=== PATIENT | female | born 1955 | race African-American/Black ===

== ENCOUNTER 2018-10-29 07:58 | Inpatient (IN) | payer BC ==
[2018-10-29] VITALS (9 sets, daily range): BP systolic 103–156; BP diastolic 64–80
[~2018-10-29] VITALS: Ht 157.5 cm; Wt 94.8 kg
[~2018-10-29 07:58] MED LIST: AMLO5TAB10 PO; HYDR-2145 PO
[2018-10-29] MEDS ORDERED: IV NORMAL SALINE 1000ML BAG 1,000 ML IV SCH ×2 (08:19→10:56)
--- NOTE | 2018-10-29 08:45 | PHYS DOC ---
Past Medical History Past Medical History: Hypertension Past Surgical History: No Surgical History Alcohol Use: None Drug Use: None Adult General Chief Complaint Chief Complaint: ABDOMINAL PAIN HPI HPI Patient is a 63 year old female who presents with complaining of back and abdominal pain. Patient states she woke up at 12:30 this morning with sudden onset of right upper back as a constant and sharp pain and later on had pain in the epigastric hematuria. Patient rated her pain 8/10 and states she had 3 episodes of vomiting and few episodes of small amount of loose stool since her pain was started. Patient denies lower abdominal pain, urinary symptoms, fever and chills, chest pain, shortness of breath. Patient states she had some episodes of the same pain for the last several months and had 1 episode of pain with vomiting last year without seeking medical attention. Review of Systems Review of Systems Constitutional: Denies fever or chills [] Eyes: Denies change in visual acuity, redness, or eye pain [] HENT: Denies nasal congestion or sore throat [] Respiratory: Denies cough or shortness of breath [] Cardiovascular: No additional information not addressed in HPI [] GI: Reports abdominal pain, nausea, vomiting, diarrhea [] : Denies dysuria or hematuria [] Musculoskeletal: Reports back pain, denies joint pain [] Integument: Denies rash or skin lesions [] Neurologic: Denies headache, focal weakness or sensory changes [] Endocrine: Denies polyuria or polydipsia [] All other systems were reviewed and found to be within normal limits, except as documented in this note. Current Medications Current Medications Current Medications Medications (Trade) Dose Ordered Sig/[facility] Start Time Stop Time Status Last Admin Dose Admin Ketorolac Tromethamine (Toradol 30mg Vial) 30 mg 1X ONCE 10/29/18 09:00 10/29/18 09:01 DC 10/29/18 08:55 30 MG Ondansetron HCl (Zofran) 4 mg 1X ONCE 10/29/18 09:00 10/29/18 09:01 DC 10/29/18 08:55 4 MG Sodium Chloride 1,000 ml @ 150 mls/hr Q6H40M 10/29/18 10:56 10/29/18 16:37 DC 10/29/18 12:21 150 MLS/HR Allergies Allergies Physical Exam Physical Exam Constitutional: Well developed, well nourished, mild distress, non-toxic appearance. [] HENT: Normocephalic, atraumatic, oropharynx dry. Eyes: PERRLA, EOMI, conjunctiva normal, no discharge. [] Neck: Normal range of motion, no tenderness, supple, no stridor. [] Cardiovascular:Heart rate regular rhythm, no murmur [] Lungs & Thorax: Bilateral breath sounds clear to auscultation [] Abdomen: Bowel sounds normal, soft, no tenderness, epigastric guarding, no masses, no pulsatile masses. [] Skin: Warm, dry, no erythema, no rash. [] Back: No midline tenderness, no CVA tenderness. [] Extremities: No tenderness, no cyanosis, no clubbing, ROM intact, no edema. [] Neurologic: Alert and oriented X 3, normal motor function, normal sensory function, no focal deficits noted. [] Psychologic: Affect normal, judgement normal, mood normal. [] Current Patient Data Vital Signs Vital Signs Date Time Temp Pulse Resp B/P (MAP) Pulse Ox O2 Delivery O2 Flow Rate FiO2 10/29/18 11:00 147/74 (98) 99 Room Air 10/29/18 10:18 100 18 10/29/18 08:00 98.2 98.2 Lab Values Laboratory Tests Test 10/29/18 08:45 10/29/18 09:25 10/29/18 09:45 White Blood Count 13.5 x10^3/uL (4.0-11.0) H Red Blood Count 4.91 x10^6/uL (3.50-5.40) Hemoglobin 13.7 g/dL (12.0-15.5) Hematocrit 42.0 % (36.0-47.0) Mean Corpuscular Volume 86 fL (79-100) Mean Corpuscular Hemoglobin 28 pg (25-35) Mean Corpuscular Hemoglobin Concent 33 g/dL (31-37) Red Cell Distribution Width 13.3 % (11.5-14.5) Platelet Count 372 x10^3/uL (140-400) Neutrophils (%) (Auto) 96 % (31-73) H Lymphocytes (%) (Auto) 2 % (24-48) L Monocytes (%) (Auto) 2 % (0-9) Eosinophils (%) (Auto) 0 % (0-3) Basophils (%) (Auto) 0 % (0-3) Neutrophils # (Auto) 12.9 x10^3uL (1.8-7.7) H Lymphocytes # (Auto) 0.3 x10^3/uL (1.0-4.8) L Monocytes # (Auto) 0.2 x10^3/uL (0.0-1.1) Eosinophils # (Auto) 0.0 x10^3/uL (0.0-0.7) Basophils # (Auto) 0.0 x10^3/uL (0.0-0.2) Segmented Neutrophils % 89 % (35-66) H Band Neutrophils % 4 % (0-9) Lymphocytes % 5 % (24-48) L Monocytes % 2 % (0-10) Platelet Estimate Adequate (ADEQUATE) Sodium Level 139 mmol/L (136-145) Potassium Level 3.4 mmol/L (3.5-5.1) L Chloride Level 100 mmol/L (98-107) Carbon Dioxide Level 24 mmol/L (21-32) Anion Gap 15 (6-14) H Blood Urea Nitrogen 12 mg/dL (7-20) Creatinine 1.0 mg/dL (0.6-1.0) Estimated GFR (Cockcroft-Gault) 67.5 BUN/Creatinine Ratio 12 (6-20) Glucose Level 155 mg/dL (70-99) H Calcium Level 9.6 mg/dL (8.5-10.1) Total Bilirubin 0.7 mg/dL (0.2-1.0) Aspartate Amino Transferase (AST) 15 U/L (15-37) Alanine Aminotransferase (ALT) 22 U/L (14-59) Alkaline Phosphatase 89 U/L (46-116) Troponin I Quantitative < 0.017 ng/mL (0.000-0.055) Total Protein 7.7 g/dL (6.4-8.2) Albumin 4.0 g/dL (3.4-5.0) Albumin/Globulin Ratio 1.1 (1.0-1.7) Lipase 39 U/L (73-393) L Urine Collection Type Unknown Urine Color Yellow Urine Clarity Clear Urine pH 7.5 Urine Specific [place] 1.015 Urine Protein Negative mg/dL (NEG-TRACE) Urine Glucose (UA) 100 mg/dL (NEG) Urine Ketones (Stick) Trace mg/dL (NEG) Urine Blood Negative (NEG) Urine Nitrite Negative (NEG) Urine Bilirubin Negative (NEG) Urine Urobilinogen Dipstick 0.2 mg/dL (0.2 mg/dL) Urine Leukocyte Esterase Negative (NEG) Urine RBC Occ /HPF (0-2) Urine WBC 1-4 /HPF (0-4) Urine Squamous Epithelial Cells Few /LPF Urine Bacteria Many /HPF (0-FEW) Laboratory Tests 10/29/18 08:45 Laboratory Tests 10/29/18 09:25 EKG EKG EKG interpreted by me. EKG at 0 817 showed sinus tachycardia at rate of 108, normal MO and QT interval, no acute ST and T-wave abnormalities. Radiology/Procedures Radiology/Procedures [facility] [address] [place] [address] IMAGING REPORT Signed PATIENT: WILLIAMS SWAN ACCOUNT: [id number] : 1955 LOCATION: ER AGE: 63 SEX: F EXAM STATUS: REG ER ORD. PHYSICIAN: DRISS VERGARA MD REASON: epigastric pain PROCEDURE: ABDOMEN LTD Limited abdominal ultrasound History: EPIGASTRIC PAIN Findings: Pancreas appears unremarkable. Inferior vena cava is documented. Liver measures 17.3 cm at the right lobe. No obvious focal lesion is seen. The gallbladder demonstrates multiple echogenic shadowing structures compatible with layering gallstones. Gallbladder wall measures 2.6 mm in thickness. Dilatation of the common bile duct, up to 10 mm. There is a nonshadowing structure within the common bile duct, could represent a polyp or fold. Right kidney measures 10.8 cm longitudinal without hydronephrosis. IMPRESSION: Findings are compatible with cholecystitis. Common bile duct is dilated at 10 mm, could be due to more distal obstruction. A definite common duct stone is not visualized. Small nonshadowing structure in the common bile duct, possibly a polyp or fold. Electronically signed by: Francisco Montiel MD (10/29/2018 9:18 AM) [facility] DICTATED and SIGNED BY: FRANCISCO MONTIEL MD DATE: 10/29/18917 Course & Med Decision Making Course & Med Decision Making Pertinent Labs and Imaging studies reviewed. (See chart for details) Dilution of patient in ER showed 63-year-old male patient with complaining of nausea and vomiting and epigastric pain. Patient had cholecystitis with dilated common bile duct in gallbladder ultrasound. On-call surgeon Dr. Bronson was consulted at 1022 and recommended admission or discharge. Patient was informed about this result and plan of care and decided to stay at Hospital. Dr. Wiggins accepted admission at 1057. Dragon Disclaimer Dragon Disclaimer This electronic medical record was generated, in whole or in part, using a voice recognition dictation system. Departure Departure Impression: Primary Impression: Acute cholecystitis Disposition: ADMITTED INPATIENT (@1057) Admitting Physician: Francisco Wiggins (accepted admission at 1057) Condition: IMPROVED Referrals: FRANCISCO WIGGINS MD (PCP) DRISS VERGARA MD Oct 29, 2018 08:45
[2018-10-29 08:58] LABS: BASO % 0 % (0-3); EOS % 0 % (0-3); HEMOGLOBIN 13.7 g/dL (12.0-15.5); LYMPH # 0.3 x10^3/uL (1.0-4.8); LYMPH % 2 % (24-48); MEAN CORPUSCULAR HEMOGLOBIN 28 pg (25-35); MEAN CORPUSCULAR HGB CONC 33 g/dL (31-37); MEAN CORPUSCULAR VOLUME 86 fL (79-100); MONO # 0.2 x10^3/uL (0.0-1.1); MONO % 2 % (0-9); NEUT # 12.9 x10^3uL (1.8-7.7); NEUT % 96 % (31-73); PLATELET COUNT 372 x10^3/uL (140-400); RED BLOOD COUNT 4.91 x10^6/uL (3.50-5.40); RED CELL DISTRIBUTION WIDTH 13.3 % (11.5-14.5); WHITE BLOOD COUNT 13.5 x10^3/uL (4.0-11.0)
[2018-10-29] MEDS ORDERED: KETOROLAC 30 MG/ML VIAL. IV ONE (09:00)
[2018-10-29] MEDS ORDERED: ONDANSETRON PF 4 MG/2 ML VIAL. IV ONE (09:00)
--- NOTE | 2018-10-29 09:21 | RAD ---
Limited abdominal ultrasound History: EPIGASTRIC PAIN Findings: Pancreas appears unremarkable. Inferior vena cava is documented. Liver measures 17.3 cm at the right lobe. No obvious focal lesion is seen. The gallbladder demonstrates multiple echogenic shadowing structures compatible with layering gallstones. Gallbladder wall measures 2.6 mm in thickness. Dilatation of the common bile duct, up to 10 mm. There is a nonshadowing structure within the common bile duct, could represent a polyp or fold. Right kidney measures 10.8 cm longitudinal without hydronephrosis. IMPRESSION: Findings are compatible with cholecystitis. Common bile duct is dilated at 10 mm, could be due to more distal obstruction. A definite common duct stone is not visualized. Small nonshadowing structure in the common bile duct, possibly a polyp or fold. Electronically signed by: Francisco Montiel MD (10/29/2018 9:18 AM) [facility]
[2018-10-29 09:46] LABS: CALCIUM 9.6 mg/dL (8.5-10.1); GFR 67.5; POTASSIUM 3.4 mmol/L (3.5-5.1)
[2018-10-29 09:52] LABS: ALBUMIN/GLOBULIN RATIO 1.1 (1.0-1.7); TOTAL BILIRUBIN 0.7 mg/dL (0.2-1.0); TOTAL PROTEIN 7.7 g/dL (6.4-8.2)
[2018-10-29 09:56] LABS: BILIRUBIN,URINE NEGATIVE (NEG); CLARITY,URINE CLEAR; COLOR,URINE YELLOW; NITRITE,URINE NEGATIVE (NEG); PH,URINE 7.5; PROTEIN,URINE NEGATIVE (NEG-TRACE); UROBILINOGEN,URINE 0.2 mg/dL (0.2 mg/dL)
[2018-10-29 10:09] LABS: SQUAMOUS EPITHELIAL CELL,UR FEW /LPF
[2018-10-29 10:10] LABS: BACTERIA,URINE MANY /HPF (0-FEW); RBC,URINE OCC /HPF (0-2)
[2018-10-29 10:20] LABS: % BANDS 4 % (0-9); % LYMPHS 5 % (24-48); % MONOS 2 % (0-10); % SEGS 89 % (35-66); PLT ESTIMATE ADEQUATE (ADEQUATE)
[2018-10-29] MEDS ORDERED: IOHEXOL 300 MG/ML 100ML VIAL. ONE (11:17)
[2018-10-29] MEDS ORDERED: BUPIVAC MPF-EPI 0.5%-1:200000 30 ML VIAL. ONE (11:17)
[2018-10-29] MEDS ORDERED: SURGICEL HEMOSTAT 4X8 EACH. ONE (11:17)
[2018-10-29] MEDS ORDERED: PIPERACILLIN/TAZOBACTAM 3.375 GM in IV NORMAL SALINE 50ML 50 ML IV ONE (11:30)
[2018-10-29] MEDS ORDERED: IV RINGERS,LACTATED 1000ML 1,000 ML IV SCH (11:46)
--- NOTE | 2018-10-29 11:50 | PDOC2 ---
TRENT CUEVAS DISASTER RECOVERY ANALYST 10/29/18 1150: CONSULT Date of Consult Date of Consult DATE: 10/29/18 TIME: 11:45 Reason for Consult Reason for Consult: cholecystitis Referring Physician Referring Physician: ER Identification/Chief Complaint Chief Complaint abdominal pain Source Source: Chart review, Patient History of Present Illness Reason for Visit: Acute onset of abdominal pain shooting to her back starting last evening. Had BBQ for dinner last night. Has had intermittent back pain before but thought related to her job. Pain has never been this bad. Associated nausea and emesis. Past Medical History Cardiovascular: HTN Past Surgical History Past Surgical History: Hysterectomy Family History Family History: Other (noncontributory to current illness ) Social History No ALCOHOL: none Drugs: None Lives: Alone Current Medications Current Medications Current Medications Sodium Chloride 1,000 ml @ 1,000 mls/hr Q1H IV Last administered on 10/29/18at 08:56; Start 10/29/18 at 08:19; Stop 10/29/18 at 09:18; Status DC Ondansetron HCl (Zofran) 4 mg 1X ONCE IV Last administered on 10/29/18at 08:55; Start 10/29/18 at 09:00; Stop 10/29/18 at 09:01; Status DC Ketorolac Tromethamine (Toradol 30mg Vial) 30 mg 1X ONCE IV Last administered on 10/29/18at 08:55; Start 10/29/18 at 09:00; Stop 10/29/18 at 09:01; Status DC Piperacillin Sod/ Tazobactam Sod 3.375 gm/Sodium Chloride 50 ml @ 100 mls/hr 1X ONCE IV ; Start 10/29/18 at 11:30; Stop 10/29/18 at 11:59 Sodium Chloride 1,000 ml @ 150 mls/hr Q6H40M IV ; Start 10/29/18 at 10:56; Stop 10/30/18 at 10:55 Active Scripts Active Hydrochlorothiazide Tablet (Hydrochlorothiazide) 25 Mg Tablet 25 Mg PO DAILY Amlodipine Besylate 5 Mg Tablet 5 Mg PO DAILY Allergies Allergies: Coded Allergies: No Known Drug Allergies (Unverified , 10/29/18) ROS General: No: Chills, Other (fevers) PSYCHOLOGICAL ROS: No: Anxiety, Depression Eyes: No Blurry vision, No Double vision HEENT: No: Heacaches, Sore Throat Hematological and Lymphatic: No: Bleeding Problems, Blood Clots Respiratory: No: Cough, Shortness of breath Cardiovascular: No Chest Pain, No Palpitations Gastrointestinal: Yes Other (see hpi) Genitourinary: No Dysuria, No Hematuria Musculoskeletal: No Joint Pain, No Muscle Pain Neurological: No Confusion, No Numbness/Tingling Skin: No Pruritus, No Rash Physical Exam General: Alert, Oriented X3, Cooperative, No acute distress HEENT: PERRLA, Mucous membr. moist/pink Lungs: Clear to auscultation, Normal air movement Heart: Regular rate, Normal S1, Normal S2, No murmurs Abdomen: Soft, Other (ND, TTP epigastric) Extremities: No clubbing, No cyanosis Skin: No rashes, No breakdown Neuro: Normal gait, Normal speech Psych/Mental Status: Mental status NL, Mood NL MUSCULOSKELETAL: No deformity, No swelling Vitals VITALS Vital Signs Date Time Temp Pulse Resp B/P (MAP) Pulse Ox O2 Delivery O2 Flow Rate FiO2 10/29/18 08:00 98.2 106 18 165/81 (109) 98 Room Air 98.2 Labs Labs Laboratory Tests Test 10/29/18 08:45 10/29/18 09:25 10/29/18 09:45 White Blood Count 13.5 x10^3/uL (4.0-11.0) Red Blood Count 4.91 x10^6/uL (3.50-5.40) Hemoglobin 13.7 g/dL (12.0-15.5) Hematocrit 42.0 % (36.0-47.0) Mean Corpuscular Volume 86 fL (79-100) Mean Corpuscular Hemoglobin 28 pg (25-35) Mean Corpuscular Hemoglobin Concent 33 g/dL (31-37) Red Cell Distribution Width 13.3 % (11.5-14.5) Platelet Count 372 x10^3/uL (140-400) Neutrophils (%) (Auto) 96 % (31-73) Lymphocytes (%) (Auto) 2 % (24-48) Monocytes (%) (Auto) 2 % (0-9) Eosinophils (%) (Auto) 0 % (0-3) Basophils (%) (Auto) 0 % (0-3) Neutrophils # (Auto) 12.9 x10^3uL (1.8-7.7) Lymphocytes # (Auto) 0.3 x10^3/uL (1.0-4.8) Monocytes # (Auto) 0.2 x10^3/uL (0.0-1.1) Eosinophils # (Auto) 0.0 x10^3/uL (0.0-0.7) Basophils # (Auto) 0.0 x10^3/uL (0.0-0.2) Segmented Neutrophils % 89 % (35-66) Band Neutrophils % 4 % (0-9) Lymphocytes % 5 % (24-48) Monocytes % 2 % (0-10) Platelet Estimate Adequate (ADEQUATE) Sodium Level 139 mmol/L (136-145) Potassium Level 3.4 mmol/L (3.5-5.1) Chloride Level 100 mmol/L (98-107) Carbon Dioxide Level 24 mmol/L (21-32) Anion Gap 15 (6-14) Blood Urea Nitrogen 12 mg/dL (7-20) Creatinine 1.0 mg/dL (0.6-1.0) Estimated GFR (Cockcroft-Gault) 67.5 BUN/Creatinine Ratio 12 (6-20) Glucose Level 155 mg/dL (70-99) Calcium Level 9.6 mg/dL (8.5-10.1) Total Bilirubin 0.7 mg/dL (0.2-1.0) Aspartate Amino Transf (AST/SGOT) 15 U/L (15-37) Alanine Aminotransferase (ALT/SGPT) 22 U/L (14-59) Alkaline Phosphatase 89 U/L (46-116) Troponin I Quantitative < 0.017 ng/mL (0.000-0.055) Total Protein 7.7 g/dL (6.4-8.2) Albumin 4.0 g/dL (3.4-5.0) Albumin/Globulin Ratio 1.1 (1.0-1.7) Lipase 39 U/L (73-393) Urine Collection Type Unknown Urine Color Yellow Urine Clarity Clear Urine pH 7.5 Urine Specific [place] 1.015 Urine Protein Negative mg/dL (NEG-TRACE) Urine Glucose (UA) 100 mg/dL (NEG) Urine Ketones (Stick) Trace mg/dL (NEG) Urine Blood Negative (NEG) Urine Nitrite Negative (NEG) Urine Bilirubin Negative (NEG) Urine Urobilinogen Dipstick 0.2 mg/dL (0.2 mg/dL) Urine Leukocyte Esterase Negative (NEG) Urine RBC Occ /HPF (0-2) Urine WBC 1-4 /HPF (0-4) Urine Squamous Epithelial Cells Few /LPF Urine Bacteria Many /HPF (0-FEW) Laboratory Tests Test 10/29/18 08:45 10/29/18 09:25 10/29/18 09:45 White Blood Count 13.5 x10^3/uL (4.0-11.0) Red Blood Count 4.91 x10^6/uL (3.50-5.40) Hemoglobin 13.7 g/dL (12.0-15.5) Hematocrit 42.0 % (36.0-47.0) Mean Corpuscular Volume 86 fL (79-100) Mean Corpuscular Hemoglobin 28 pg (25-35) Mean Corpuscular Hemoglobin Concent 33 g/dL (31-37) Red Cell Distribution Width 13.3 % (11.5-14.5) Platelet Count 372 x10^3/uL (140-400) Neutrophils (%) (Auto) 96 % (31-73) Lymphocytes (%) (Auto) 2 % (24-48) Monocytes (%) (Auto) 2 % (0-9) Eosinophils (%) (Auto) 0 % (0-3) Basophils (%) (Auto) 0 % (0-3) Neutrophils # (Auto) 12.9 x10^3uL (1.8-7.7) Lymphocytes # (Auto) 0.3 x10^3/uL (1.0-4.8) Monocytes # (Auto) 0.2 x10^3/uL (0.0-1.1) Eosinophils # (Auto) 0.0 x10^3/uL (0.0-0.7) Basophils # (Auto) 0.0 x10^3/uL (0.0-0.2) Segmented Neutrophils % 89 % (35-66) Band Neutrophils % 4 % (0-9) Lymphocytes % 5 % (24-48) Monocytes % 2 % (0-10) Platelet Estimate Adequate (ADEQUATE) Sodium Level 139 mmol/L (136-145) Potassium Level 3.4 mmol/L (3.5-5.1) Chloride Level 100 mmol/L (98-107) Carbon Dioxide Level 24 mmol/L (21-32) Anion Gap 15 (6-14) Blood Urea Nitrogen 12 mg/dL (7-20) Creatinine 1.0 mg/dL (0.6-1.0) Estimated GFR (Cockcroft-Gault) 67.5 BUN/Creatinine Ratio 12 (6-20) Glucose Level 155 mg/dL (70-99) Calcium Level 9.6 mg/dL (8.5-10.1) Total Bilirubin 0.7 mg/dL (0.2-1.0) Aspartate Amino Transf (AST/SGOT) 15 U/L (15-37) Alanine Aminotransferase (ALT/SGPT) 22 U/L (14-59) Alkaline Phosphatase 89 U/L (46-116) Troponin I Quantitative < 0.017 ng/mL (0.000-0.055) Total Protein 7.7 g/dL (6.4-8.2) Albumin 4.0 g/dL (3.4-5.0) Albumin/Globulin Ratio 1.1 (1.0-1.7) Lipase 39 U/L (73-393) Urine Collection Type Unknown Urine Color Yellow Urine Clarity Clear Urine pH 7.5 Urine Specific [place] 1.015 Urine Protein Negative mg/dL (NEG-TRACE) Urine Glucose (UA) 100 mg/dL (NEG) Urine Ketones (Stick) Trace mg/dL (NEG) Urine Blood Negative (NEG) Urine Nitrite Negative (NEG) Urine Bilirubin Negative (NEG) Urine Urobilinogen Dipstick 0.2 mg/dL (0.2 mg/dL) Urine Leukocyte Esterase Negative (NEG) Urine RBC Occ /HPF (0-2) Urine WBC 1-4 /HPF (0-4) Urine Squamous Epithelial Cells Few /LPF Urine Bacteria Many /HPF (0-FEW) Assessment/Plan Assessment/Plan cholecystitis HTN obesity plan lap sanam today BALTAZAR SELBY MD 10/29/18 1221: CONSULT Assessment/Plan Assessment/Plan Patient seen and examined by me. Complains of RUQ abd pain. U/S showing gallstones and dilated CBD. Abd soft, ND TTP RUQ. Agree with Jama's assessment and plan for L/S Cholecystectomy today. TRENT CUEVAS DISASTER RECOVERY ANALYST Oct 29, 2018 11:50 BALTAZAR SELBY MD Oct 29, 2018 12:21
[2018-10-29] MEDS ORDERED: ONDANSETRON PF 4 MG/2 ML VIAL. IV PRN ×2 (12:00→14:00)
[2018-10-29] MEDS ORDERED: fentaNYL PF VIAL 100 MCG/2 ML VIAL IV PRN (12:00)
[2018-10-29] MEDS ORDERED: HYDROmorphone 2 MG/ML VIAL IV PRN (12:00)
[2018-10-29] MEDS ORDERED: PROCHLORPERAZINE 10 MG/2 ML VIAL. IV PRN (12:00)
[2018-10-29] MEDS ORDERED: LIDOCAINE 1% PF 2 ML VIAL. ID PRN (12:00)
[2018-10-29] MEDS ORDERED: MORPHINE SULFATE 2 MG/ML VIAL. IV PRN ×2 (12:00→14:00)
[2018-10-29] MEDS ORDERED: HYDROcodone/APAP 5/325MG 1 TAB TABLET PO PRN (12:15)
[2018-10-29] MEDS ORDERED: ACETAMINOPHEN 325 MG TABLET. PO PRN (12:15)
--- NOTE | 2018-10-29 12:16 | PDOC ---
Provider Note Provider Note history and physical dictated # [id number] LOLITA ORTIZ MD Oct 29, 2018 12:16
[2018-10-29] MEDS ORDERED: SUCCINYLCHOLINE 200 MG/10 ML VIAL. ONE (12:24)
[2018-10-29] MEDS ORDERED: NEOSTIGMINE METHYLSULFATE 5 MG/5 ML SYRINGE. ONE (12:24)
[2018-10-29] MEDS ORDERED: GLYCOPYRROLATE 1 MG/5 ML VIAL. ONE (12:24)
[2018-10-29] MEDS ORDERED: ROCURONIUM 50 MG/5 ML VIAL. ONE (12:24)
[2018-10-29] MEDS ORDERED: MIDAZOLAM HCL/PF 2 MG/2 ML VIAL. ONE (12:24)
[2018-10-29] MEDS ORDERED: fentaNYL PF VIAL 100 MCG/2 ML VIAL ONE ×2 (12:24→13:24)
[2018-10-29] MEDS ORDERED: SEVOFLURANE 31 TO 60 MINUTES. IH ONE (12:24)
[2018-10-29] MEDS ORDERED: DEXAMETHASONE SOD PHOS 20 MG/5 ML VIAL. ONE (12:25)
[2018-10-29] MEDS ORDERED: ONDANSETRON PF 4 MG/2 ML VIAL. ONE (12:25)
[2018-10-29] MEDS ORDERED: LIDOCAINE 2% PF 5 ML VIAL. ONE (12:25)
[2018-10-29] MEDS ORDERED: PROPOFOL 20 ML IV ONE (12:25)
--- NOTE | 2018-10-29 12:33 | EKG ---
[facility] [address] [place] [address] Test Date: 2018-10-29 Test Time: 08:17:13 Pat Name: WILLIAMS SWAN Department: Room: 402 1 Gender: F Nutrition Representative: : 1955 Requested By: DRISS VERGARA Order Number: [id number] Reading MD: Cheko Navas MD Measurements Intervals [place] Rate: 108 P: -104 [place]: 170 QRS: 15 QRSD: 72 T: 45 QT: 378 QTc: 511 Interpretive Statements SR NON-SPECIFIC ST/T CHANGES Electronically Signed On 10-29-2018 14:30:24 CDT by Cheko Navas MD
[2018-10-29] MEDS ORDERED: ESMOLOL 100 MG/10 ML VIAL. IVP ONE (13:01)
--- NOTE | 2018-10-29 13:01 | HP ---
ADMIT DATE: 10/29/2018 LOCATION: She is in room 402. HISTORY OF PRESENT ILLNESS: The patient is a 63-year-old -[place] female with a history of hypertension who noted the onset of right upper back pain after 12:00 this morning. It was associated with nausea and vomiting. She had developed a high epigastric discomfort also. The pain was severe, and she sought help at the [facility] where she was evaluated. She had an ultrasound of her gallbladder, which showed evidence of multiple gallstones, and she also had a dilated common bile duct up to 10 mm. It was compatible with acute cholecystitis with common bile duct dilatation. Definite common bile duct stone was not visualized. The patient has already been seen by the general surgeon, and general surgeon nurse practitioner will be having a laparoscopy, cholecystectomy within the hour. She denies any fever, chills or sweats. ALLERGIES AND INTOLERANCES: None. MEDICATIONS: Prior to admission, losartan 50 mg every day, amlodipine 10 mg every day, hydrochlorothiazide 25 mg every day, potassium chloride 10 mEq every day. PAST MEDICAL HISTORY: Significant for hysterectomy. She has hypertension. She denies any history of diabetes mellitus, myocardial infarction, cerebrovascular accident, congestive heart failure, rheumatic fever, peptic ulcer disease, asthma, kidney stones, bleeding disorders. SOCIAL HISTORY: She does not drink alcohol nor does she smoke cigarettes. She works as an aide on a school bus. She is not . FAMILY HISTORY: Noncontributory. REVIEW OF SYSTEMS: GENERAL: No fever, chills or sweats in the last 3 days. CARDIOVASCULAR: No chest pain. PULMONARY: No cough or shortness breath. GASTROINTESTINAL: No constipation. She did have the nausea, vomiting and some abdominal pain as mentioned, the pain in the right side of the back, shoulder blade area. ENDOCRINE: No diabetes mellitus. SKIN: No rashes. Rest of systems reviewed and are negative except as stated in history of present illness. PHYSICAL EXAMINATION: VITAL SIGNS: Temperature is 98.2 degrees, apical pulse is 100, respiratory rate 18, blood pressure 126/68, oxygen saturation 100% on room air. HEENT: Eyes: Gaze is conjugate. Sclerae are anicteric. Mouth: Tongue is midline. NECK: There is no cervical lymphadenopathy or thyroid enlargement. HEART: Reveals an S1, S2. There is no S3 or murmur. LUNGS: Clear. ABDOMEN: Soft. She has minimal epigastric tenderness. There is no rebound. Bowel sounds are positive, not distended, obese. EXTREMITIES: Lower extremities without edema. SKIN: No rashes. LABORATORY DATA: Review of her laboratory tests: White count is high at 13.5, hemoglobin 13.7, platelet count of 372,000. 96 polys and 2 lymphocytes. Sodium 139, potassium 3.4, chloride 100, total CO2 of 24, BUN was 12, creatinine 1.0, blood sugar is 155. Liver function tests were normal. Troponin levels less than 0.017. Lipase was 39. Urinalysis showed occasional red cell, 1-4 white blood cells. The abdominal ultrasound as mentioned showed cholelithiasis and compatible with acute cholecystitis with common bile duct dilatation of 10 mm. I do not see an EKG report, I do not see a chest x-ray either. ASSESSMENT: 1. Acute cholecystitis with cholelithiasis. 2. Leukocytosis. 3. Hypertension. 4. Hypokalemia. PLAN: At this time, the patient has already been seen by nurse practitioner, surgeon, and she tells me that she will be having surgery within the next hour. We will resume her antihypertensive medications if her blood pressure permitting tomorrow. She will receive analgesics. I spoke with the ER doctor earlier and recommend some IV Zosyn. In fact, she did get a dose. She received analgesics prior to my examination, she says that she has less pain. LOLITA ORTIZ MD DR: NEEMA/kathrin JOB#: [id number] / [id number]
--- NOTE | 2018-10-29 13:18 | RAD ---
EXAM: Chest, single view. HISTORY: Hypertension. Preoperative evaluation. COMPARISON: None. FINDINGS: A frontal view of the chest is obtained. There is no infiltrate, pleural effusion or pneumothorax. The heart is normal in size. IMPRESSION: No acute pulmonary finding. Electronically signed by: Nafisa Martin MD (10/29/2018 1:15 PM) [place] [id number]
[2018-10-29] MEDS: IV DEXTROSE 5%-LACT RINGERS 1,000 ML IV SCH (13:48)
--- NOTE | 2018-10-29 13:48 | PDOC4 ---
Operative Note Operative Note Date: 10/29/2018 Preoperative diagnosis acute cholecystitis Postoperative diagnosis: Same Procedure: Laparoscopic cholecystectomy with intraoperative cholangiogram Surgeon: Audie Specimen: Gallbladder Dictation: Patient is a 63-year-old female who was admitted to the hospital with right upper quadrant abdominal pain and an ultrasound showing gallstones with thickened gallbladder wall and mildly dilated common bile duct procedure of laparoscopic cholecystectomy was explained to the patient in detail risks benefits were also discussed including bleeding infection alternatives to this procedure also discussed with the patient who gave both verbal and written consent to have the procedure performed. Patient was taken to the operating room placed in supine position general anesthesia was initiated once patient was sleep and intubated her abdomen was prepped and draped in the usual sterile fashion using ChloraPrep and area at the umbilicus was injected with quarter percent Marcaine with epinephrine incision was made with 11 blade scalpel veress needle was placed within the abdomen creating pneumoperitoneum once this was complete 11 mm port was placed and a 5 mm camera was placed within the abdomen which was inspected was noted that there was quite a bit of edema around the gallbladder. 5 mm port was placed in the epigastrium a 5 mm port was placed in the right lateral abdomen and one in the right mid abdomen all under direct visualization. The dome of the gallbladder is grasped and retracted cephalad the infundibulum of the gallbladder is grasped retracted laterally exposing the triangle adherent tissues the triangle were taken down with blunt dissection exposing the cystic duct and cystic artery the artery was clipped and transected the cystic duct was quite large so a 11 mm port was placed in the epigastrium and using a 10 mm Hem-o-yamil clip was placed on the cystic duct on the gallbladder side the duct was then partially opened with EndoShears scissors and a cholangiogram catheter was placed through 14-gauge Angiocath through the anterior abdominal wall into the cystic duct which was clipped into place with an hemo-lock clip. Cholangiogram was shot which showed good retrograde and antegrade flow of dye into the hepatic radicals and into the duodenum without appearance of obstruction. The cholangiocatheter was removed the cystic duct was transected and the gallbladder was taken off the liver with hook electrocautery placed in Endo Catch bag and removed from the umbilicus right upper quadrant was irrigated suctioned dry hemostasis seemed to be appropriate and the pneumoperitoneum was reduced all ports were removed the fascial defect at the umbilicus closed [id number] Vicryl suture skin was approximate all port sites with 40 septic and a Monocryl Mastisol Steri-Strips and island dressings were applied. The patient was awakened and excavated in the operating room taken to recovery in stable condition all sponge instrument needle counts listed as correct estimated blood loss 30 mL. BALTAZAR SELBY MD Oct 29, 2018 13:48
[2018-10-29] MEDS ORDERED: oxyCODONE/APAP 5/325 1 TAB TABLET PO PRN ×2 (14:00)
[2018-10-29] MEDS ORDERED: 0.9 % SODIUM CHLORIDE 10 ML DISP.SYRIN. IV PRN (14:00)
--- NOTE | 2018-10-29 14:16 | RAD ---
EXAM: Intraoperative cholangiogram. HISTORY: Cholecystectomy. COMPARISON: None. FINDINGS: 3 fluoroscopic images were obtained during and after cholangiogram. The total fluoroscopy time was 0.19 minutes. The images demonstrate contrast opacification of a dilated biliary tree and the proximal duodenum. There is focal narrowing of the downstream common bile duct possibly due to a spasm or stricture. There is a tiny filling defect within a left biliary duct branch which is likely due to a tiny air bubble. No convincing stone is seen. IMPRESSION: Biliary ductal dilatation with focal narrowing at the level of the ampulla. This may be due to a spasm or stricture. No retained stone is seen. Electronically signed by: Nafisa Martin MD (10/29/2018 2:13 PM) [id number]
[2018-10-29] MEDS: fentaNYL PF VIAL 100 MCG/2 ML VIAL IV PRN ×2 (14:32→15:17)
[2018-10-29] MEDS ORDERED: HYDR25TA10 PO (14:41)
[2018-10-29] MEDS ORDERED: LOSA-73 PO (14:41)
[2018-10-29] MEDS ORDERED: POTA10TA12 PO (14:41)
[2018-10-29] MEDS ORDERED: AMLO10TA8 PO (14:41)
--- NOTE | 2018-10-29 15:30 | NUR ---
Pt arrived post op at 1530, from PACU, report given from Bridget in PACU. Pt assessed and placed on frequent vital signs. Pt is alert x4, stable at this time, family at bedside. Tolerating ice chips, reporting pain at 0/10, no nausea.
--- NOTE | 2018-10-29 17:15 | EKG ---
[facility] [address] [place] [address] Test Date: 2018-10-29 Test Time: 17:12:41 Pat Name: WILLIAMS SWAN Department: Room: 402 1 Gender: F [employer]: : 1955 Requested By: LOLITA ORTIZ Order Number: [id number] Reading MD: Cheko Navas MD Measurements Intervals [place] Rate: 105 P: 41 CT: 142 QRS: 11 QRSD: 68 T: 23 QT: 322 QTc: 429 Interpretive Statements SINUS TACHYCARDIA Electronically Signed On 11-02-2018 15:52:23 CDT by Cheko Navas MD
--- NOTE | 2018-10-29 17:50 | NUR ---
At 1700 pt needed to use the restroom, she wanted to go to the toilet to urinate. Pt was escorted by this nurse to the toilet, she was steady, and told to use the string to call when she was ready to get up again. This nurse was in another room when this pt called from the bathroom. Another nurse entered the room to find the patient on the floor, family at bedside. After pt had gotten up standing, this nurse walked in to find pt and other nurse standing by the sink. Pt is unsteady at this point, a commode was placed underneath pt, pt instructed to sit. Pt's VS were taken, WNL, except high HR measured. Neuro check done, WNL. A stat 12 lead EKG was ordered per protocol. Results of EKG show Sinus Tachycardia. 120s-130s. After further assessment and questioning, Pt was escorted back to bed with 2 assist, without any further unsteadiness assessed. Pt did report some slight dizziness. Charge nurse notified. Doctor notified. The incident was explained to the best of my ability to the patient and patients family. Addendum: 10/29/18 at 1759 by MARILEE BARROS RN A verge report was filed by the nurse that discovered patient on the floor. Pt was alert x4, and oriented before the incident. Stating that she understood to call when she was done in the bathroom.
[2018-10-29] MEDS: KETOROLAC 15 MG/ML VIAL. IV SCH (18:08)
--- NOTE | 2018-10-29 18:24 | NUR ---
Dr. Wiggins notified of fall, new orders given, medication list altered. Will continue to monitor pt closely.
[2018-10-30] MEDS: IV DEXTROSE 5%-LACT RINGERS 1,000 ML IV SCH (02:59)
[2018-10-30 03:00] VITALS: BP 149/68
[2018-10-30 05:04] LABS: BASO % 0 % (0-3); EOS % 0 % (0-3); LYMPH # 0.6 x10^3/uL (1.0-4.8); LYMPH % 5 % (24-48); MEAN CORPUSCULAR HEMOGLOBIN 29 pg (25-35); MEAN CORPUSCULAR HGB CONC 33 g/dL (31-37); MEAN CORPUSCULAR VOLUME 86 fL (79-100); MONO # 0.6 x10^3/uL (0.0-1.1); MONO % 6 % (0-9); NEUT # 10.4 x10^3uL (1.8-7.7); NEUT % 90 % (31-73); PLATELET COUNT 318 x10^3/uL (140-400); RED BLOOD COUNT 3.15 x10^6/uL (3.50-5.40); RED CELL DISTRIBUTION WIDTH 13.3 % (11.5-14.5); WHITE BLOOD COUNT 11.6 x10^3/uL (4.0-11.0)
[2018-10-30 05:37] LABS: ALBUMIN/GLOBULIN RATIO 0.9 (1.0-1.7); CALCIUM 8.7 mg/dL (8.5-10.1); CREATININE 1.3 mg/dL (0.6-1.0); GFR 49.9; POTASSIUM 3.4 mmol/L (3.5-5.1); TOTAL BILIRUBIN 0.8 mg/dL (0.2-1.0); TOTAL PROTEIN 6.2 g/dL (6.4-8.2)
[2018-10-30] MEDS: KETOROLAC 15 MG/ML VIAL. IV SCH ×2 (05:43)
[2018-10-30 07:00] VITALS: BP 136/68
--- NOTE | 2018-10-30 07:54 | PDOC ---
SURGICAL PROGRESS NOTE Subjective Patient doing quite well this morning tolerating diet no complaints Vital Signs Vital Signs Date Time Temp Pulse Resp B/P (MAP) Pulse Ox O2 Delivery O2 Flow Rate FiO2 10/30/18 07:00 97.9 107 18 136/68 (90) 98 Room Air 97.9 10/29/18 14:07 10 I&O Intake and Output 10/30/18 07:00 Intake Total 2565 ml Output Total 50 ml Balance 2515 ml Intake Oral 315 ml IV Total 2250 ml Output Urine Total 0 ml Estimated Blood Loss 50 ml # Voids 2 PATIENT HAS A COOL: No General: Alert, Oriented X3, Cooperative, No acute distress Abdomen: Normal bowel sounds, Soft, No tenderness, Other (wounds clean dry and intact) Labs Laboratory Tests Test 10/29/18 08:45 10/29/18 09:25 10/29/18 09:45 10/30/18 03:52 White Blood Count 13.5 x10^3/uL (4.0-11.0) 11.6 x10^3/uL (4.0-11.0) Red Blood Count 4.91 x10^6/uL (3.50-5.40) 3.15 x10^6/uL (3.50-5.40) Hemoglobin 13.7 g/dL (12.0-15.5) 9.0 g/dL (12.0-15.5) Hematocrit 42.0 % (36.0-47.0) 27.0 % (36.0-47.0) Mean Corpuscular Volume 86 fL (79-100) 86 fL (79-100) Mean Corpuscular Hemoglobin 28 pg (25-35) 29 pg (25-35) Mean Corpuscular Hemoglobin Concent 33 g/dL (31-37) 33 g/dL (31-37) Red Cell Distribution Width 13.3 % (11.5-14.5) 13.3 % (11.5-14.5) Platelet Count 372 x10^3/uL (140-400) 318 x10^3/uL (140-400) Neutrophils (%) (Auto) 96 % (31-73) 90 % (31-73) Lymphocytes (%) (Auto) 2 % (24-48) 5 % (24-48) Monocytes (%) (Auto) 2 % (0-9) 6 % (0-9) Eosinophils (%) (Auto) 0 % (0-3) 0 % (0-3) Basophils (%) (Auto) 0 % (0-3) 0 % (0-3) Neutrophils # (Auto) 12.9 x10^3uL (1.8-7.7) 10.4 x10^3uL (1.8-7.7) Lymphocytes # (Auto) 0.3 x10^3/uL (1.0-4.8) 0.6 x10^3/uL (1.0-4.8) Monocytes # (Auto) 0.2 x10^3/uL (0.0-1.1) 0.6 x10^3/uL (0.0-1.1) Eosinophils # (Auto) 0.0 x10^3/uL (0.0-0.7) 0.0 x10^3/uL (0.0-0.7) Basophils # (Auto) 0.0 x10^3/uL (0.0-0.2) 0.0 x10^3/uL (0.0-0.2) Segmented Neutrophils % 89 % (35-66) Band Neutrophils % 4 % (0-9) Lymphocytes % 5 % (24-48) Monocytes % 2 % (0-10) Platelet Estimate Adequate (ADEQUATE) Sodium Level 139 mmol/L (136-145) 139 mmol/L (136-145) Potassium Level 3.4 mmol/L (3.5-5.1) 3.4 mmol/L (3.5-5.1) Chloride Level 100 mmol/L (98-107) 104 mmol/L (98-107) Carbon Dioxide Level 24 mmol/L (21-32) 23 mmol/L (21-32) Anion Gap 15 (6-14) 12 (6-14) Blood Urea Nitrogen 12 mg/dL (7-20) 13 mg/dL (7-20) Creatinine 1.0 mg/dL (0.6-1.0) 1.3 mg/dL (0.6-1.0) Estimated GFR (Cockcroft-Gault) 67.5 49.9 BUN/Creatinine Ratio 12 (6-20) 10 (6-20) Glucose Level 155 mg/dL (70-99) 183 mg/dL (70-99) Calcium Level 9.6 mg/dL (8.5-10.1) 8.7 mg/dL (8.5-10.1) Total Bilirubin 0.7 mg/dL (0.2-1.0) 0.8 mg/dL (0.2-1.0) Aspartate Amino Transf (AST/SGOT) 15 U/L (15-37) 42 U/L (15-37) Alanine Aminotransferase (ALT/SGPT) 22 U/L (14-59) 59 U/L (14-59) Alkaline Phosphatase 89 U/L (46-116) 68 U/L (46-116) Troponin I Quantitative < 0.017 ng/mL (0.000-0.055) Total Protein 7.7 g/dL (6.4-8.2) 6.2 g/dL (6.4-8.2) Albumin 4.0 g/dL (3.4-5.0) 3.0 g/dL (3.4-5.0) Albumin/Globulin Ratio 1.1 (1.0-1.7) 0.9 (1.0-1.7) Lipase 39 U/L (73-393) Urine Collection Type Unknown Urine Color Yellow Urine Clarity Clear Urine pH 7.5 Urine Specific Tarpley 1.015 Urine Protein Negative mg/dL (NEG-TRACE) Urine Glucose (UA) 100 mg/dL (NEG) Urine Ketones (Stick) Trace mg/dL (NEG) Urine Blood Negative (NEG) Urine Nitrite Negative (NEG) Urine Bilirubin Negative (NEG) Urine Urobilinogen Dipstick 0.2 mg/dL (0.2 mg/dL) Urine Leukocyte Esterase Negative (NEG) Urine RBC Occ /HPF (0-2) Urine WBC 1-4 /HPF (0-4) Urine Squamous Epithelial Cells Few /LPF Urine Bacteria Many /HPF (0-FEW) Laboratory Tests Test 10/29/18 08:45 10/29/18 09:25 10/29/18 09:45 10/30/18 03:52 White Blood Count 13.5 x10^3/uL (4.0-11.0) 11.6 x10^3/uL (4.0-11.0) Red Blood Count 4.91 x10^6/uL (3.50-5.40) 3.15 x10^6/uL (3.50-5.40) Hemoglobin 13.7 g/dL (12.0-15.5) 9.0 g/dL (12.0-15.5) Hematocrit 42.0 % (36.0-47.0) 27.0 % (36.0-47.0) Mean Corpuscular Volume 86 fL (79-100) 86 fL (79-100) Mean Corpuscular Hemoglobin 28 pg (25-35) 29 pg (25-35) Mean Corpuscular Hemoglobin Concent 33 g/dL (31-37) 33 g/dL (31-37) Red Cell Distribution Width 13.3 % (11.5-14.5) 13.3 % (11.5-14.5) Platelet Count 372 x10^3/uL (140-400) 318 x10^3/uL (140-400) Neutrophils (%) (Auto) 96 % (31-73) 90 % (31-73) Lymphocytes (%) (Auto) 2 % (24-48) 5 % (24-48) Monocytes (%) (Auto) 2 % (0-9) 6 % (0-9) Eosinophils (%) (Auto) 0 % (0-3) 0 % (0-3) Basophils (%) (Auto) 0 % (0-3) 0 % (0-3) Neutrophils # (Auto) 12.9 x10^3uL (1.8-7.7) 10.4 x10^3uL (1.8-7.7) Lymphocytes # (Auto) 0.3 x10^3/uL (1.0-4.8) 0.6 x10^3/uL (1.0-4.8) Monocytes # (Auto) 0.2 x10^3/uL (0.0-1.1) 0.6 x10^3/uL (0.0-1.1) Eosinophils # (Auto) 0.0 x10^3/uL (0.0-0.7) 0.0 x10^3/uL (0.0-0.7) Basophils # (Auto) 0.0 x10^3/uL (0.0-0.2) 0.0 x10^3/uL (0.0-0.2) Segmented Neutrophils % 89 % (35-66) Band Neutrophils % 4 % (0-9) Lymphocytes % 5 % (24-48) Monocytes % 2 % (0-10) Platelet Estimate Adequate (ADEQUATE) Sodium Level 139 mmol/L (136-145) 139 mmol/L (136-145) Potassium Level 3.4 mmol/L (3.5-5.1) 3.4 mmol/L (3.5-5.1) Chloride Level 100 mmol/L (98-107) 104 mmol/L (98-107) Carbon Dioxide Level 24 mmol/L (21-32) 23 mmol/L (21-32) Anion Gap 15 (6-14) 12 (6-14) Blood Urea Nitrogen 12 mg/dL (7-20) 13 mg/dL (7-20) Creatinine 1.0 mg/dL (0.6-1.0) 1.3 mg/dL (0.6-1.0) Estimated GFR (Cockcroft-Gault) 67.5 49.9 BUN/Creatinine Ratio 12 (6-20) 10 (6-20) Glucose Level 155 mg/dL (70-99) 183 mg/dL (70-99) Calcium Level 9.6 mg/dL (8.5-10.1) 8.7 mg/dL (8.5-10.1) Total Bilirubin 0.7 mg/dL (0.2-1.0) 0.8 mg/dL (0.2-1.0) Aspartate Amino Transf (AST/SGOT) 15 U/L (15-37) 42 U/L (15-37) Alanine Aminotransferase (ALT/SGPT) 22 U/L (14-59) 59 U/L (14-59) Alkaline Phosphatase 89 U/L (46-116) 68 U/L (46-116) Troponin I Quantitative < 0.017 ng/mL (0.000-0.055) Total Protein 7.7 g/dL (6.4-8.2) 6.2 g/dL (6.4-8.2) Albumin 4.0 g/dL (3.4-5.0) 3.0 g/dL (3.4-5.0) Albumin/Globulin Ratio 1.1 (1.0-1.7) 0.9 (1.0-1.7) Lipase 39 U/L (73-393) Urine Collection Type Unknown Urine Color Yellow Urine Clarity Clear Urine pH 7.5 Urine Specific Tarpley 1.015 Urine Protein Negative mg/dL (NEG-TRACE) Urine Glucose (UA) 100 mg/dL (NEG) Urine Ketones (Stick) Trace mg/dL (NEG) Urine Blood Negative (NEG) Urine Nitrite Negative (NEG) Urine Bilirubin Negative (NEG) Urine Urobilinogen Dipstick 0.2 mg/dL (0.2 mg/dL) Urine Leukocyte Esterase Negative (NEG) Urine RBC Occ /HPF (0-2) Urine WBC 1-4 /HPF (0-4) Urine Squamous Epithelial Cells Few /LPF Urine Bacteria Many /HPF (0-FEW) Assessment/Plan Status post laparoscopic cholecystectomy doing quite well Agree on discharging home from surgical standpoint BALTAZAR SELBY MD Oct 30, 2018 07:54
--- NOTE | 2018-10-30 08:51 | NUR ---
SW reviewed pt's medical chart and evaluated for potential dc needs. Pt is from home and was admitted for choleaystitis. Pt had surgery on 10/29/2018 and surgeon's note stated she will return home upon dc. At this time pt does not have any dc needs. SW will continue to follow and be available if pt's condition changes or requires dc planning.
[2018-10-30] MEDS ORDERED: amLODIPine BESYLATE 5 MG TABLET PO SCH (09:00)
[2018-10-30] MEDS ORDERED: POTASSIUM CHLORIDE 10 MEQ TABLET.ER. PO SCH (09:00)
[2018-10-30] MEDS ORDERED: hydroCHLOROthiazide 25 MG TABLET PO SCH (09:00)
[2018-10-30] MEDS ORDERED: LOSARTAN POTASSIUM 50 MG TABLET. PO SCH (09:00)
[2018-10-30] MEDS ORDERED: amLODIPine BESYLATE 10 MG TABLET PO SCH (09:00)
[2018-10-30] MEDS ORDERED: POTASSIUM CHLORIDE 20 MEQ TABLET.ER. PO ONE (10:30)
--- NOTE | 2018-10-30 10:34 | PDOC ---
PROGRESS NOTES Subjective Subjective feels well. ambulating and ate breakfast and comfortable. noted drop in hgb 9.0 but unsure what her baseline is and she could have been dehydrated on admission and hgb could have dropped from acute blood loss and iv fluids. no melena. creatinine 1.3. bp okay. potassium 3.4. will order kcl. off of hctz Objective Objective Vital Signs Date Time Temp Pulse Resp B/P (MAP) Pulse Ox O2 Delivery O2 Flow Rate FiO2 10/30/18 08:20 107 136/68 10/30/18 08:10 Room Air 10/30/18 07:00 97.9 18 98 97.9 10/29/18 14:07 10 Intake and Output 10/30/18 07:00 Intake Total 2565 ml Output Total 50 ml Balance 2515 ml Intake Oral 315 ml IV Total 2250 ml Output Urine Total 0 ml Estimated Blood Loss 50 ml # Voids 2 Physical Exam Abdomen: Normal bowel sounds, Soft, Other (dry dressing) Heart: Regular rate, Normal S1, Normal S2 Extremities: No edema General: Alert HEENT: Atraumatic Lungs: Clear to auscultation Neuro: Normal speech Psych/Mental Status: Mental status NL Skin: No rashes Assessment Assessment 1. Acute cholecystitis with cholelithiasis. lap cholecystectomy 2. Leukocytosis.better 3. Hypertension. 4. Hypokalemia. monitor hgb next week as out patient start oral iron dismiss today Comment Review of Relevant I have reviewed the following items randolph (where applicable) has been applied. Labs Laboratory Tests Test 10/29/18 08:45 10/29/18 09:25 10/29/18 09:45 10/30/18 03:52 White Blood Count 13.5 x10^3/uL (4.0-11.0) 11.6 x10^3/uL (4.0-11.0) Red Blood Count 4.91 x10^6/uL (3.50-5.40) 3.15 x10^6/uL (3.50-5.40) Hemoglobin 13.7 g/dL (12.0-15.5) 9.0 g/dL (12.0-15.5) Hematocrit 42.0 % (36.0-47.0) 27.0 % (36.0-47.0) Mean Corpuscular Volume 86 fL (79-100) 86 fL (79-100) Mean Corpuscular Hemoglobin 28 pg (25-35) 29 pg (25-35) Mean Corpuscular Hemoglobin Concent 33 g/dL (31-37) 33 g/dL (31-37) Red Cell Distribution Width 13.3 % (11.5-14.5) 13.3 % (11.5-14.5) Platelet Count 372 x10^3/uL (140-400) 318 x10^3/uL (140-400) Neutrophils (%) (Auto) 96 % (31-73) 90 % (31-73) Lymphocytes (%) (Auto) 2 % (24-48) 5 % (24-48) Monocytes (%) (Auto) 2 % (0-9) 6 % (0-9) Eosinophils (%) (Auto) 0 % (0-3) 0 % (0-3) Basophils (%) (Auto) 0 % (0-3) 0 % (0-3) Neutrophils # (Auto) 12.9 x10^3uL (1.8-7.7) 10.4 x10^3uL (1.8-7.7) Lymphocytes # (Auto) 0.3 x10^3/uL (1.0-4.8) 0.6 x10^3/uL (1.0-4.8) Monocytes # (Auto) 0.2 x10^3/uL (0.0-1.1) 0.6 x10^3/uL (0.0-1.1) Eosinophils # (Auto) 0.0 x10^3/uL (0.0-0.7) 0.0 x10^3/uL (0.0-0.7) Basophils # (Auto) 0.0 x10^3/uL (0.0-0.2) 0.0 x10^3/uL (0.0-0.2) Segmented Neutrophils % 89 % (35-66) Band Neutrophils % 4 % (0-9) Lymphocytes % 5 % (24-48) Monocytes % 2 % (0-10) Platelet Estimate Adequate (ADEQUATE) Sodium Level 139 mmol/L (136-145) 139 mmol/L (136-145) Potassium Level 3.4 mmol/L (3.5-5.1) 3.4 mmol/L (3.5-5.1) Chloride Level 100 mmol/L (98-107) 104 mmol/L (98-107) Carbon Dioxide Level 24 mmol/L (21-32) 23 mmol/L (21-32) Anion Gap 15 (6-14) 12 (6-14) Blood Urea Nitrogen 12 mg/dL (7-20) 13 mg/dL (7-20) Creatinine 1.0 mg/dL (0.6-1.0) 1.3 mg/dL (0.6-1.0) Estimated GFR (Cockcroft-Gault) 67.5 49.9 BUN/Creatinine Ratio 12 (6-20) 10 (6-20) Glucose Level 155 mg/dL (70-99) 183 mg/dL (70-99) Calcium Level 9.6 mg/dL (8.5-10.1) 8.7 mg/dL (8.5-10.1) Total Bilirubin 0.7 mg/dL (0.2-1.0) 0.8 mg/dL (0.2-1.0) Aspartate Amino Transf (AST/SGOT) 15 U/L (15-37) 42 U/L (15-37) Alanine Aminotransferase (ALT/SGPT) 22 U/L (14-59) 59 U/L (14-59) Alkaline Phosphatase 89 U/L (46-116) 68 U/L (46-116) Troponin I Quantitative < 0.017 ng/mL (0.000-0.055) Total Protein 7.7 g/dL (6.4-8.2) 6.2 g/dL (6.4-8.2) Albumin 4.0 g/dL (3.4-5.0) 3.0 g/dL (3.4-5.0) Albumin/Globulin Ratio 1.1 (1.0-1.7) 0.9 (1.0-1.7) Lipase 39 U/L (73-393) Urine Collection Type Unknown Urine Color Yellow Urine Clarity Clear Urine pH 7.5 Urine Specific [place] 1.015 Urine Protein Negative mg/dL (NEG-TRACE) Urine Glucose (UA) 100 mg/dL (NEG) Urine Ketones (Stick) Trace mg/dL (NEG) Urine Blood Negative (NEG) Urine Nitrite Negative (NEG) Urine Bilirubin Negative (NEG) Urine Urobilinogen Dipstick 0.2 mg/dL (0.2 mg/dL) Urine Leukocyte Esterase Negative (NEG) Urine RBC Occ /HPF (0-2) Urine WBC 1-4 /HPF (0-4) Urine Squamous Epithelial Cells Few /LPF Urine Bacteria Many /HPF (0-FEW) Laboratory Tests Test 10/30/18 03:52 White Blood Count 11.6 x10^3/uL (4.0-11.0) Red Blood Count 3.15 x10^6/uL (3.50-5.40) Hemoglobin 9.0 g/dL (12.0-15.5) Hematocrit 27.0 % (36.0-47.0) Mean Corpuscular Volume 86 fL (79-100) Mean Corpuscular Hemoglobin 29 pg (25-35) Mean Corpuscular Hemoglobin Concent 33 g/dL (31-37) Red Cell Distribution Width 13.3 % (11.5-14.5) Platelet Count 318 x10^3/uL (140-400) Neutrophils (%) (Auto) 90 % (31-73) Lymphocytes (%) (Auto) 5 % (24-48) Monocytes (%) (Auto) 6 % (0-9) Eosinophils (%) (Auto) 0 % (0-3) Basophils (%) (Auto) 0 % (0-3) Neutrophils # (Auto) 10.4 x10^3uL (1.8-7.7) Lymphocytes # (Auto) 0.6 x10^3/uL (1.0-4.8) Monocytes # (Auto) 0.6 x10^3/uL (0.0-1.1) Eosinophils # (Auto) 0.0 x10^3/uL (0.0-0.7) Basophils # (Auto) 0.0 x10^3/uL (0.0-0.2) Sodium Level 139 mmol/L (136-145) Potassium Level 3.4 mmol/L (3.5-5.1) Chloride Level 104 mmol/L (98-107) Carbon Dioxide Level 23 mmol/L (21-32) Anion Gap 12 (6-14) Blood Urea Nitrogen 13 mg/dL (7-20) Creatinine 1.3 mg/dL (0.6-1.0) Estimated GFR (Cockcroft-Gault) 49.9 BUN/Creatinine Ratio 10 (6-20) Glucose Level 183 mg/dL (70-99) Calcium Level 8.7 mg/dL (8.5-10.1) Total Bilirubin 0.8 mg/dL (0.2-1.0) Aspartate Amino Transf (AST/SGOT) 42 U/L (15-37) Alanine Aminotransferase (ALT/SGPT) 59 U/L (14-59) Alkaline Phosphatase 68 U/L (46-116) Total Protein 6.2 g/dL (6.4-8.2) Albumin 3.0 g/dL (3.4-5.0) Albumin/Globulin Ratio 0.9 (1.0-1.7) Medications Current Medications Sodium Chloride 1,000 ml @ 1,000 mls/hr Q1H IV Last administered on 10/29/18at 08:56; Start 10/29/18 at 08:19; Stop 10/29/18 at 09:18; Status DC Ondansetron HCl (Zofran) 4 mg 1X ONCE IV Last administered on 10/29/18at 08:55; Start 10/29/18 at 09:00; Stop 10/29/18 at 09:01; Status DC Ketorolac Tromethamine (Toradol 30mg Vial) 30 mg 1X ONCE IV Last administered on 10/29/18at 08:55; Start 10/29/18 at 09:00; Stop 10/29/18 at 09:01; Status DC Piperacillin Sod/ Tazobactam Sod 3.375 gm/Sodium Chloride 50 ml @ 100 mls/hr 1X ONCE IV Last administered on 10/29/18at 12:22; Start 10/29/18 at 11:30; Stop 10/29/18 at 11:59; Status DC Sodium Chloride 1,000 ml @ 150 mls/hr Q6H40M IV Last administered on 10/29/18at 12:21; Start 10/29/18 at 10:56; Stop 10/29/18 at 16:37; Status DC Ondansetron HCl (Zofran) 4 mg PRN Q6HRS PRN IV NAUSEA/VOMITING; Start 10/29/18 at 12:00; Stop 10/30/18 at 11:59 Fentanyl Citrate (Fentanyl 2ml Vial) 25 mcg PRN Q5MIN PRN IV MILD PAIN; Start 10/29/18 at 12:00; Stop 10/30/18 at 11:59 Fentanyl Citrate (Fentanyl 2ml Vial) 50 mcg PRN Q5MIN PRN IV MODERATE TO SEVERE PAIN Last administered on 10/29/18at 15:17; Start 10/29/18 at 12:00; Stop at 11:59 Morphine Sulfate (Morphine Sulfate) 1 mg PRN Q10MIN PRN IV SEVERE PAIN; Start 10/29/18 at 12:00; Stop 10/30/18 at 11:59 Ringer's Solution 1,000 ml @ 30 mls/hr Q24H IV Last administered on 10/29/18at 14:02; Start 10/29/18 at 11:46; Stop 10/29/18 at 23:45; Status DC Lidocaine HCl (Xylocaine-Mpf 1% 2ml Vial) 2 ml 1X PRN PRN ID IV START; Start at 12:00; Stop 10/30/18 at 11:59 Hydromorphone HCl (Dilaudid) 0.5 mg PRN Q10MIN PRN IV SEV PAIN, Second choice; Start 10/29/18 at 12:00; Stop 10/30/18 at 11:59 Prochlorperazine Edisylate (Compazine) 5 mg PACU PRN PRN IV NAUSEA, MRX1; Start 10/29/18 at 12:00; Stop 10/30/18 at 11:59 Acetaminophen (Tylenol) 650 mg PRN Q6HRS PRN PO MILD PAIN / TEMP; Start at 12:15 Acetaminophen/ Hydrocodone Bitart (Lortab 5/325) 1 tab PRN Q4HRS PRN PO PAIN; Start 10/29/18 at 12:15 Bupivacaine HCl/ Epinephrine Bitart (Sensorcain-Mpf Epi 0.5%-1:[id number]) 30 ml STK -MED ONCE .ROUTE Last administered on 10/29/18at 12:52; Start 10/29/18 at 11:17; Stop 10/29/18 at 12:17; Status DC Iohexol (Omnipaque 300 Mg/ml) 100 ml STK-MED ONCE .ROUTE Last administered on at 13:02; Start 10/29/18 at 11:17; Stop 10/29/18 at 12:18; Status DC Cellulose (Surgicel Hemostat 4x8) 1 each STK-MED ONCE .ROUTE ; Start 10/29/18 at 11:17; Stop 10/29/18 at 12:18; Status DC Sevoflurane (Ultane) 30 ml STK-MED ONCE IH ; Start 10/29/18 at 12:24; Stop at 12:25; Status DC Midazolam HCl (Versed) 2 mg STK-MED ONCE .ROUTE ; Start 10/29/18 at 12:24; Stop 10/29/18 at 12:25; Status DC Fentanyl Citrate (Fentanyl 2ml Vial) 100 mcg STK-MED ONCE .ROUTE ; Start at 12:24; Stop 10/29/18 at 12:25; Status DC Succinylcholine Chloride (Anectine) 200 mg STK-MED ONCE .ROUTE ; Start 10/29/18 at 12:24; Stop 10/29/18 at 12:25; Status DC Glycopyrrolate (Robinul) 1 mg STK-MED ONCE .ROUTE ; Start 10/29/18 at 12:24; Stop 10/29/18 at 12:25; Status DC Neostigmine Methylsulfate (Neostigmine Methylsulfate) 5 mg STK-MED ONCE .ROUTE ; Start 10/29/18 at 12:24; Stop 10/29/18 at 12:25; Status DC Rocuronium [place] (Zemuron) 50 mg STK-MED ONCE .ROUTE ; Start 10/29/18 at 12:24 ; Stop 10/29/18 at 12:25; Status DC Propofol 20 ml @ As Directed STK-MED ONCE IV ; Start 10/29/18 at 12:25; Stop 10/29 at 12:26; Status DC Dexamethasone Sodium Phosphate (Decadron) 20 mg STK-MED ONCE .ROUTE ; Start 10/29 at 12:25; Stop 10/29/18 at 12:26; Status DC Lidocaine HCl (Lidocaine Pf 2% Vial) 5 ml STK-MED ONCE .ROUTE ; Start 10/29/18 at 12:25; Stop 10/29/18 at 12:26; Status DC Ondansetron HCl (Zofran) 4 mg STK-MED ONCE .ROUTE ; Start 10/29/18 at 12:25; Stop 10/29/18 at 12:26; Status DC Esmolol HCl (Brevibloc) 100 mg STK-MED ONCE IVP ; Start 10/29/18 at 13:01; Stop 10/29/18 at 13:02; Status DC Fentanyl Citrate (Fentanyl 2ml Vial) 100 mcg STK-MED ONCE .ROUTE ; Start at 13:24; Stop 10/29/18 at 13:25; Status DC Sodium Chloride (Normal Saline Flush) 3 ml QSHIFT PRN IV AFTER MEDS AND BLOOD DRAWS; Start 10/29/18 at 14:00 Morphine Sulfate (Morphine Sulfate) 2 mg PRN Q3HRS PRN IV PAIN; Start 10/29/18 at 14:00 Oxycodone/ Acetaminophen (Percocet 5/325) 1 tab PRN Q4HRS PRN PO MILD PAIN, 1ST CHOICE; Start 10/29/18 at 14:00 Oxycodone/ Acetaminophen (Percocet 5/325) 2 tab PRN Q4HRS PRN PO MODERATE PAIN , SEVERE PAIN; Start 10/29/18 at 14:00 Ketorolac Tromethamine (Toradol 15mg Vial) 15 mg Q6HRS IV Last administered on 10/29/18at 18:08; Start 10/29/18 at 18:00; Stop 10/31/18 at 17:59 Ondansetron HCl (Zofran) 4 mg PRN Q6HRS PRN IV NAUSEA, 1ST CHOICE; Start at 14:00 Dextrose/Lactated Ringer's 1,000 ml @ 75 mls/hr [id number] IV Last administered on 10/30/18at 02:59; Start 10/29/18 at 13:48 Amlodipine Besylate (Norvasc) 10 mg DAILY PO ; Start 10/30/18 at 09:00; Stop 10/30 at 09:00; Status DC Hydrochlorothiazide (Hydrodiuril) 25 mg DAILY PO ; Start 10/30/18 at 09:00; Stop 10/30/18 at 09:00; Status DC Losartan Potassium (Cozaar) 50 mg DAILY PO Last administered on 10/30/18at 08:19 ; Start 10/30/18 at 09:00 Potassium Chloride (Klor-Con) 10 meq DAILY PO ; Start 10/30/18 at 09:00; Stop 10/30/18 at 09:00; Status DC Amlodipine Besylate (Norvasc) 5 mg DAILY PO Last administered on 10/30/18at 08:20 ; Start 10/30/18 at 09:00 Active Scripts Active Reported Potassium Chloride 10 Meq Tab.sr.24h 10 Meq PO DAILY Hydrochlorothiazide 25 Mg Tablet 25 Mg PO DAILY Amlodipine Besylate 10 Mg Tablet 10 Mg PO DAILY Losartan Potassium 50 Mg Tablet 50 Mg PO DAILY Vitals/I & O Vital Sign - Last 24 Hours 10/29/18 10/29/18 10/29/18 10/29/18 11:00 11:30 12:10 13:52 Temp 99.3 99.3 Pulse 106 107 Resp 20 B/P (MAP) 147/74 (98) 150/74 (99) 158/77 Pulse Ox 99 99 98 O2 Delivery Room Air Room Air Room Air Mask O2 Flow Rate 10 10/29/18 10/29/18 10/29/18 10/29/18 13:52 14:07 14:22 14:32 Temp 97.5 97.5 Pulse 87 84 85 Resp 20 20 20 20 B/P (MAP) 157/61 134/78 149/73 Pulse Ox 100 99 97 99 O2 Delivery Simple Mask Simple Mask Room Air Room Air O2 Flow Rate 10 10 10/29/18 10/29/18 10/29/18 10/29/18 14:37 14:52 15:07 15:17 Temp 97.0 97.0 Pulse 91 92 94 Resp 20 20 20 22 B/P (MAP) 134/65 134/85 134/64 Pulse Ox 96 96 96 O2 Delivery Room Air Room Air Room Air Room Air 10/29/18 10/29/18 10/29/18 10/29/18 15:30 15:30 15:45 16:00 Temp 97.7 97.7 Pulse 96 99 120 Resp 18 18 18 B/P (MAP) 104/69 (81) 103/76 (85) 126/80 (95) Pulse Ox 93 99 99 O2 Delivery Room Air Room Air Room Air Room Air 10/29/18 10/29/18 10/29/184/19 16:15 16:30 16:35 17:30 Pulse 110 103 113 Resp 18 18 18 B/P (MAP) 136/80 (98) 156/79 (104) 137/71 (93) Pulse Ox 100 98 99 100 O2 Delivery Room Air Room Air Room Air Room Air 10/29/18 10/29/18 10/29/18 10/29/18 18:30 19:00 20:00 23:00 Temp 97.8 98.2 97.8 98.2 Pulse 100 91 98 Resp 18 18 18 B/P (MAP) 155/79 (104) 145/71 (95) 137/64 (88) Pulse Ox 100 100 99 O2 Delivery Room Air Room Air Room Air Room Air 10/30/18 10/30/18 10/30/18 10/30/18 03:00 07:00 08:10 08:19 Temp 98.2 97.9 98.2 97.9 Pulse 101 107 107 Resp 18 B/P (MAP) 149/68 (95) 136/68 (90) 136/68 Pulse Ox 99 98 O2 Delivery Room Air Room Air Room Air 10/30/18 08:20 Pulse 107 B/P (MAP) 136/68 Intake and Output 10/29/18 10/29/18 10/30/18 15:00 23:00 07:00 Intake Total 2250 ml 175 ml 140 ml Output Total 50 ml 0 ml Balance 2200 ml 175 ml 140 ml LOLITA ORTIZ MD Oct 30, 2018 10:34
[2018-10-30] MEDS ORDERED: FERR325T72 PO (10:37)
[2018-10-30] MEDS ORDERED: AMLO5TAB10 PO (10:37)
[2018-10-30] MEDS ORDERED: HYDR-2761 PO (10:37)
--- NOTE | 2018-10-30 10:38 | DISCH ---
DISCHARGE INSTRUCTIONS Condition on Discharge Condition on Discharge: Stable Activity After Discharge Activity Instructions for Disc: Resume previous activity Weight Bearing Status after Di: As tolerated Diet after Discharge Diet after Discharge: No Added Salt, No Added Sugar, Regular Contacting the DRAtilio after DC Call your doctor for: If your condition worsens Follow-Up Follow up with: dr. nobles next week Follow Up With: dr. reina next week LOLITA NOBLES MD Oct 30, 2018 10:38
--- NOTE | 2018-10-30 10:42 | PDOC ---
Provider Note Provider Note discharge summary dictated # [id number] LOLITA ORTIZ MD Oct 30, 2018 10:42
[2018-10-30 11:00] VITALS: BP 128/71
[2018-10-30] MEDS ORDERED: PANTOPRAZOLE 40 MG TABLET.DR. PO SCH (11:30)
[2018-10-30] MEDS ORDERED: FERROUS SULFATE 325 MG TABLET. PO SCH (17:00)
--- NOTE | 2018-10-30 19:20 | DS ---
DATE OF DISCHARGE: 10/30/2018 PET FOOD DEBONER: Dr. Bronson. PROCEDURES: Laparoscopy cholecystectomy with intraoperative cholangiogram. FINAL DIAGNOSES: 1. Acute cholecystitis with cholelithiasis. 2. Hypokalemia. 3. Mild acute kidney injury. 4. Leukocytosis, which improved. 5. Acute blood loss anemia. 6. Hypertension. HOSPITAL COURSE: The patient is a 63-year-old -[place] female with a history of hypertension, noted to have an onset of right upper back pain around 12:00 in the morning associated with epigastric discomfort, nausea and vomiting. It was quite severe and discomfort. She went to the [facility] Emergency Room on 10/29/2018 where an ultrasound of the abdomen showed multiple gallstones and a dilated common bile duct. The patient was seen by Dr. Bronson in consultation, underwent a laparoscopic acute cholecystectomy with an intraoperative cholecystogram without any evidence of a stone in the bile duct. The patient tolerated the surgery well and ate breakfast, ambulatory, feeling fine without any significant discomfort and is ready to be dismissed. Serum creatinine is little high 1.3 and potassium was low at 3.4. She received potassium chloride. Amlodipine was decreased from 10 to 5 mg every day, losartan continued at 100 mg every day and hydrochlorothiazide was discontinued postoperatively. In addition, hemoglobin did drop. She was 13, but it is possible she could have been dehydrated on admission. She did have a lot of vomiting. White count improved from 13.5 to 11.6, hemoglobin 13.7 on admission. There was no evidence of melena. She was afebrile. Dr. Bronson felt that she can go home from a surgical standpoint. Urinalysis showed no pyuria. Chest x-ray was clean. She ate breakfast and felt fine and felt ready to go home. She was started on ferrous sulfate. We will also give her some Protonix 40 mg p.o. every day. She will be dismissed to home today on [place] 5/325 one every 4 hours p.r.n., 30 tablets, no refill; ferrous sulfate 325 mg b.i.d., amlodipine 5 mg every day, Protonix 40 mg every day, losartan 50 mg every day and she will stop the hydrochlorothiazide and potassium. We gave her a dose of potassium chloride 20 mEq x 1 today. She will be dismissed on a regular diet, was told to follow with Dr. Wiggins next week. We will recheck her CBC and BMP in the office and told to drink plenty of fluids and follow up with Dr. Bronson next week also. Dismissed on a regular diet. LOLITA WIGGINS MD DR: NEEMA/kathrin JOB#: [id number] / [id number]
--- NOTE | 2018-11-02 16:07 | PATHOLOGY ---
[facility] Accession Number: [id number] . 01 Material submitted: . GALLBLADDER . 01 Clinical history: . Cholelithiasis . 02 Diagnosis: Gallbladder, cholecystectomy: - Cholelithiasis. - Chronic and focal acute cholecystitis. ([facility] 11/02/2018) [facility]/11/02/2018 . 02 Comment: There is no evidence of malignancy. ([facility] 11/02/2018) . 02 Electronically signed: . Jeevan Kelley MD, Pathologist NPI- [id number] . 01 Gross description: . The specimen is received in formalin, labeled "Ijeoma Green, gallbladder". Received is an intact gallbladder measuring 9.4 x 2.5 x 2.1 cm in greatest dimensions displaying a blue-martinez serosal surface. Opening the gallbladder reveals a velvety, light brown mucosa with a gallbladder wall thickness of 0.1 cm. Calculi are present displaying a yellow-campo and multifaceted appearance, and no masses or lesions are noted grossly. Swaging Machine Operator sections, to include the proximal margin, are submitted in cassette A1. (CAA; 10/30/2018) QAC/QAC . 02 Pathologist provided ICD-10: K80.12 . 02 CPT . 295804 Specimen Comment: A courtesy copy of this report has been sent to Specimen Comment: [phone], . Specimen Comment: Report sent to / DR ORTIZ Performed at: 01 [facility] [address] [facility] [address], [place] [id number] MD Truong Monte MD Phone: [phone] Performed at: 02 [facility] [id number] MD Jeevan Kelley MD Phone: [phone]
== END 2018-10-30 11:42 | disposition home or self-care (01) | DRG 418 ==
LOC: ER 07:58 → 4 NORTH 11:00
PROVIDERS: ADMIT Internal Medicine; ATTEND Internal Medicine
PROC: BF131ZZ Fluoroscopy of Gallbladder and Bile Ducts using Low Osmolar Contrast (ICD-10-PCS; 2018-10-29)
PROC: 0FT44ZZ Resection of Gallbladder, Percutaneous Endoscopic Approach (ICD-10-PCS; principal; 2018-10-29 12:30)
DX: K80.00 Calculus of gallbladder with acute cholecystitis without obstruction (principal); N17.9 Acute kidney failure, unspecified; D62 Acute posthemorrhagic anemia; E87.6 Hypokalemia; E66.9 Obesity, unspecified; I10 Essential (primary) hypertension; Z90.710 Acquired absence of both cervix and uterus; Z68.38 Body mass index [BMI] 38.0-38.9, adult
CPT/HCPCS: 36415; 71045; 74300; 76705; 80053; 81001; 83690; 84484; 85007; 85025; 87086; 87186; 88304; 93005; 96361; 96374; 96375; A7015; J0330; J1100; J1885; J2001; J2250; J2405; J2543; J2704; J2710; J3010; J3490; J7030; J7120; Q9967; 99285-25

== ENCOUNTER → 2019-10-13 | Outpatient (CLI) | payer BC, MEDICARE ==
[~2019-10-13] MED LIST changes: +AMLO10TA8 PO; +FERR325T72 PO; +HYDR-2761 PO; +HYDR25TA10 PO; +LOSA-73 PO; +POTA10TA12 PO
--- NOTE | 2019-10-13 10:17 | KCIC ---
EXAM: Dual energy x-ray absorptiometry (DEXA). HISTORY: Postmenopausal female presents for osteoporosis screening. COMPARISON: None. TECHNIQUE: Dual energy x-ray absorptiometry of the lumbar spine and left hip was performed. Calculation of bone mineral density based on standard deviations above or below the expected young adult normal value (T-score) was completed. FINDINGS: The average bone mineral density in the 1st through 4th lumbar vertebrae is 1.140 g/cmxcm, corresponding with a T-score of 0.8. The average total bone mineral density in the left hip is 0.864 g/cmxcm, corresponding with a T-score of -0.6. IMPRESSION: Normal bone mineral density. Note: Definitions established by the World Health Organization: 1. Normal: T-score is -1.0 or above. 2. Osteopenia: T-score is between -1.0 and -2.5 . 3. Osteoporosis: T-score is -2.5 or below. Electronically signed by: Nafisa Martin MD (10/13/2019 10:14 AM) [email or web address]
--- NOTE | 2019-10-25 08:20 | KCIC ---
Bilateral digital screening mammograms: Reason for examination: Routine screening. Comparison is made to previous study dated 07/30/2016. Interpretation is made with the benefit of CAD. The skin and nipples show no abnormalities. No abnormal lymph nodes are seen. The breast parenchyma is predominantly fatty. (Breast density: Category A.) There continues to be a small circumscribed lesion anterior superiorly in the left breast on oblique view which is stable. There are no new dominant masses, suspicious calcifications or architectural distortions. Impression: No evidence of malignancy. Recommend routine screening. BI-RADS Category 2: Benign. "Our facility is accredited by the [employer] Mammography Program." This patient's information has been entered into a reminder system for the patient to be notified with the results of her examination and a target date for the next mammogram. Electronically signed by: Cynthia Larose MD (10/25/2019 8:18 AM) [email or web address]
== END | disposition home or self-care (01) ==
LOC: KCIC MAMMO 08:41
PROVIDERS: ATTEND Internal Medicine
DX: Z12.31 Encounter for screening mammogram for malignant neoplasm of breast (principal); E28.39 Other primary ovarian failure; Z78.0 Asymptomatic menopausal state
CPT/HCPCS: 77067; 77080

== ENCOUNTER 2020-08-20 07:11 | Emergency (ER) | payer MEDICARE ==
[~2020-08-20] VITALS: Ht 157.5 cm; Wt 98.0 kg
[~2020-08-20 07:11] MED LIST changes: +AMLO-186 PO; +AMLO-187 PO; -AMLO10TA8 PO; -AMLO5TAB10 PO
--- NOTE | 2020-08-20 08:07 | PHYS DOC ---
Past Medical History Past Medical History: Hypertension Past Surgical History: Hysterectomy Smoking Status: Never Smoker Alcohol Use: None Drug Use: None General Adult EDM: Chief Complaint: Palpitations HPI: HPI: Patient is a 65 year old [f__sex] who presents with [] Review of Systems: Review of Systems: Constitutional: Denies fever or chills. [] Eyes: Denies change in visual acuity. [] HENT: Denies nasal congestion or sore throat. [] Respiratory: Denies cough or shortness of breath. [] Cardiovascular: Denies chest pain or edema. [] GI: Denies abdominal pain, nausea, vomiting, bloody stools or diarrhea. [] : Denies dysuria. [] Musculoskeletal: Denies back pain or joint pain. [] Integument: Denies rash. [] Neurologic: Denies headache, focal weakness or sensory changes. [] Endocrine: Denies polyuria or polydipsia. [] Lymphatic: Denies swollen glands. [] Psychiatric: Denies depression or anxiety. [] Heart Score: Risk Factors: Risk Factors: DM, Current or recent (<one month) smoker, HTN, HLP, family history of CAD, obesity. Risk Scores: Score 0 - 3: 2.5% MACE over next 6 weeks - Discharge Home Score 4 - 6: 20.3% MACE over next 6 weeks - Admit for Clinical Observation Score 7 - 10: 72.7% MACE over next 6 weeks - Early Invasive Strategies Allergies: Allergies: Allergies Coded Allergies Type Severity Reaction Last Updated Verified No Known Drug Allergies 10/29/18 No Physical Exam: PE: Constitutional: Well developed, well nourished, no acute distress, non-toxic appearance. [] HENT: Normocephalic, atraumatic, bilateral external ears normal, oropharynx moist, no oral exudates, nose normal. [] Eyes: PERRLA, EOMI, conjunctiva normal, no discharge. [] Neck: Normal range of motion, no tenderness, supple, no stridor. [] Cardiovascular:Heart rate regular rhythm, no murmur [] Lungs & Thorax: Bilateral breath sounds clear to auscultation [] Abdomen: Bowel sounds normal, soft, no tenderness, no masses, no pulsatile masses. [] Skin: Warm, dry, no erythema, no rash. [] Back: No tenderness, no CVA tenderness. [] Extremities: No tenderness, no cyanosis, no clubbing, ROM intact, no edema. [] Neurologic: Alert and oriented X 3, normal motor function, normal sensory function, no focal deficits noted. [] Psychologic: Affect normal, judgement normal, mood normal. [] Current Patient Data: Labs: Laboratory Tests Test 08/20/20 08:14 08/20/20 08:18 Urine Collection Type Unknown Urine Color Yellow Urine Clarity Clear Urine pH 5.5 Urine Specific [place] 1.015 Urine Protein Negative mg/dL Urine Glucose (UA) Negative mg/dL Urine Ketones (Stick) Negative mg/dL Urine Blood Negative Urine Nitrite Negative Urine Bilirubin Negative Urine Urobilinogen Dipstick 0.2 mg/dL Urine Leukocyte Esterase Moderate Urine RBC Rare /HPF Urine WBC 20-40 /HPF Urine Squamous Epithelial Cells Mod /LPF Urine Bacteria Many /HPF White Blood Count 4.4 x10^3/uL Red Blood Count 4.79 x10^6/uL Hemoglobin 13.7 g/dL Hematocrit 41.5 % Mean Corpuscular Volume 87 fL Mean Corpuscular Hemoglobin 29 pg Mean Corpuscular Hemoglobin Concent 33 g/dL Red Cell Distribution Width 13.2 % Platelet Count 286 x10^3/uL Neutrophils (%) (Auto) 66 % Lymphocytes (%) (Auto) 20 % Monocytes (%) (Auto) 13 % Eosinophils (%) (Auto) 1 % Basophils (%) (Auto) 1 % Neutrophils # (Auto) 2.9 x10^3/uL Lymphocytes # (Auto) 0.9 x10^3/uL Monocytes # (Auto) 0.5 x10^3/uL Eosinophils # (Auto) 0.0 x10^3/uL Basophils # (Auto) 0.0 x10^3/uL Sodium Level 141 mmol/L Potassium Level 4.1 mmol/L Chloride Level 107 mmol/L Carbon Dioxide Level 22 mmol/L Anion Gap 12 Blood Urea Nitrogen 9 mg/dL Creatinine 0.9 mg/dL Estimated GFR (Cockcroft-Gault) 75.8 BUN/Creatinine Ratio 10 Glucose Level 107 mg/dL Calcium Level 9.5 mg/dL Magnesium Level 2.3 mg/dL Total Bilirubin 0.5 mg/dL Aspartate Amino Transf (AST/SGOT) 17 U/L Alanine Aminotransferase (ALT/SGPT) 23 U/L Alkaline Phosphatase 101 U/L Troponin I Quantitative < 0.017 ng/mL CG-Wbe-O-Type Natriuretic Peptide 16 pg/mL Total Protein 7.8 g/dL Albumin 3.9 g/dL Albumin/Globulin Ratio 1.0 EKG: EKG: EKG was done at 801, heart rate of 86 bpm, normal sinus rhythm, no ST segment ovation. Radiology/Procedures: Radiology/Procedures: [][facility] [address] [place] [address] IMAGING REPORT Signed PATIENT: WILLIAMS SWAN ACCOUNT: [id number] : 1955 LOCATION: ER AGE: 65 SEX: F EXAM STATUS: REG ER ORD. PHYSICIAN: MITA PENA DO REASON: HEART PALPITATION PROCEDURE: PORTABLE CHEST 1V Exam performed: One view chest. Indication: Reason: HEART PALPITATION / Spl. Instructions: / History: Date of Service: 08/20/2020 8:04 AM Comparison: One view chest from 10/29/2018. Single AP upright portable view chest findings: Cardiomediastinal silhouette is within limits of normal. Mildly prominent, partially calcified right hilar lymph node is seen. No acute infiltrates, effusion or pneumothorax is detected. The bony structures are normal. Impression: No acute cardiopulmonary process is detected. Electronically signed by: Rajani Hough MD (08/20/2020 8:20 AM) [id number] DICTATED and SIGNED BY: RAJANI HOUGH MD DATE: 08/20/20 [id number] 0 Course & Med Decision Making: Course & Med Decision Making Pertinent Labs and Imaging studies reviewed. (See chart for details) [] Dragon Disclaimer: Dragon Disclaimer: This electronic medical record was generated, in whole or in part, using a voice recognition dictation system. Departure Departure Impression: Primary Impression: Palpitations with regular cardiac rhythm Additional Impression: UTI (urinary tract infection) Disposition: 01 DC HOME SELF CARE/HOMELESS Condition: STABLE Referrals: LOLITA ORTIZ MD (PCP) follow up with your doctor next week Patient Instructions: Palpitations, Urinary Tract Infection Scripts Nitrofurantoin Monohyd/M-Cryst (MACROBID 100 MG CAPSULE) 100 Mg Capsule 1 CAP PO BID for 10 Days, #20 CAP 0 Refills Prov: MITA PENA DO 08/20/20 MITA PENA DO Aug 20, 2020 08:07
--- NOTE | 2020-08-20 08:23 | RAD ---
Exam performed: One view chest. Indication: Reason: HEART PALPITATION / Spl. Instructions: / History: Date of Service: 08/20/2020 8:04 AM Comparison: One view chest from 10/29/2018. Single AP upright portable view chest findings: Cardiomediastinal silhouette is within limits of normal. Mildly prominent, partially calcified right hilar lymph node is seen. No acute infiltrates, effusion or pneumothorax is detected. The bony struc tures are normal. Impression: No acute cardiopulmonary process is detected. Electronically signed by: Rajani Hough MD (08/20/2020 8:20 AM) [id number]
[2020-08-20 08:31] LABS: BILIRUBIN,URINE NEGATIVE (NEG); CLARITY,URINE CLEAR; COLOR,URINE YELLOW; NITRITE,URINE NEGATIVE (NEG); PH,URINE 5.5 (<5.0-8.0); PROTEIN,URINE NEGATIVE (NEG-TRACE); UROBILINOGEN,URINE 0.2 mg/dL (0.2 mg/dL)
[2020-08-20 08:35] LABS: BASO % 1 % (0-3); EOS % 1 % (0-3); HEMATOCRIT 41.5 % (36.0-47.0); HEMOGLOBIN 13.7 g/dL (12.0-15.5); LYMPH # 0.9 x10^3/uL (1.0-4.8); LYMPH % 20 % (24-48); MEAN CORPUSCULAR HEMOGLOBIN 29 pg (25-35); MEAN CORPUSCULAR HGB CONC 33 g/dL (31-37); MEAN CORPUSCULAR VOLUME 87 fL (79-100); MONO # 0.5 x10^3/uL (0.0-1.1); MONO % 13 % (0-9); NEUT # 2.9 x10^3/uL (1.8-7.7); NEUT % 66 % (31-73); PLATELET COUNT 286 x10^3/uL (140-400); RED BLOOD COUNT 4.79 x10^6/uL (3.50-5.40); RED CELL DISTRIBUTION WIDTH 13.2 % (11.5-14.5); WHITE BLOOD COUNT 4.4 x10^3/uL (4.0-11.0)
[2020-08-20 08:40] LABS: CALCIUM 9.5 mg/dL (8.5-10.1); CREATININE 0.9 mg/dL (0.6-1.0); GFR 75.8; POTASSIUM 4.1 mmol/L (3.5-5.1)
[2020-08-20 08:46] LABS: ALBUMIN 3.9 g/dL (3.4-5.0); MAGNESIUM 2.3 mg/dL (1.8-2.4); TOTAL BILIRUBIN 0.5 mg/dL (0.2-1.0); TOTAL PROTEIN 7.8 g/dL (6.4-8.2)
[2020-08-20 08:50] LABS: RBC,URINE RARE /HPF (0-2)
[2020-08-20 08:51] LABS: BACTERIA,URINE MANY /HPF (0-FEW); WBC,URINE 20-40 /HPF (0-4)
[2020-08-20] MEDS ORDERED: NITR100C62 PO (09:10)
[2020-08-20 09:29] VITALS: BP 147/74
--- NOTE | 2020-08-21 07:39 | EKG ---
[facility] [address] [place] [address] Test Date: 2020-08-20 Test Time: 07:58:51 Pat Name: WILLIAMS SWAN Department: Room: Gender: F [employer]: : 1955 Requested By: MITA PENA Order Number: [id number] Reading MD: Measurements Intervals [place] Rate: 86 P: 50 ME: 156 QRS: -4 QRSD: 66 T: 18 QT: 346 QTc: 417 Interpretive Statements SINUS RHYTHM LEFTWARD AXIS OTHERWISE NORMAL ECG RI6.02 No previous ECG available for comparison
== END 2020-08-20 09:40 | disposition home or self-care (01) ==
LOC: ER 07:11
DX: N39.0 Urinary tract infection, site not specified (principal); R00.2 Palpitations; I10 Essential (primary) hypertension; Z90.710 Acquired absence of both cervix and uterus
CPT/HCPCS: 36415; 71045; 80053; 81001; 83735; 83880; 84484; 85025; 87086; 93005; 99285